=== PATIENT | female | born 1985 | race African-American/Black ===

== ENCOUNTER 2018-09-07 19:53 | Emergency (ER) | payer SELFPAY ==
[~2018-09-07] VITALS: Ht 176.5 cm; Wt 108.9 kg
[~2018-09-07 19:53] MED LIST: BSP10T PO; ONDN4T PO; PREN1TAB14 PO
--- NOTE | 2018-09-07 20:46 | ED EENT ---
History of Present Illness General Chief Complaint: Ear Problems Stated Complaint: ITEM LODGED INTO LT EAR Nursing Triage Note: Patient states she put a wax ear plug in her ear and now she can't get it out. Source: patient Exam Limitations: no limitations History of Present Illness Date Seen by Provider: Sep 07, 2018 Time Seen by Provider: 20:15 Initial Comments Patient is a 33-year-old female with history of chronic bilateral swimmer's ear presents with foreign body impaction left ear. Patient states she used to wax earplug this morning to eliminate fluid sensation in her ears and has been unable to remove the wax foreign body. Reports appropriate accompanied loss of hearing in left ear. No other symptoms or complaints. Several attempts to remove foreign body at home are made but were unsuccessful. Timing/Duration: abrupt Location: ear (L) Prearrival Treatment: other Associated Symptoms: change in hearing Allergies and Home Medications Home Medications Buspirone Hcl 10 Mg Tablet, 3 TAB PO DAILY, (Reported) Ondansetron Hcl 4 Mg Tab, 1 TAB PO Q8H PRN, (Reported) Vits W-Ca,Fe,Fa(<1MG) 1 Each Tablet, 1 EACH PO DAILY, (Reported) Patient Home Medication List Home Medication List Reviewed: Yes Review of Systems Review of Systems Constitutional: no symptoms reported Eyes: No Symptoms Reported Ears: See HPI Nose: no symptoms reported Mouth: no symptoms reported Past Xdcbcqm-Hbrqwu-Kybbtm Hx Past Med/Social Hx: Reviewed Nursing Past Med/Soc Hx Patient Social History Alcohol Use: Denies Use Recreational Drug Use: Yes Drug of Choice: Marijuana, HX - Meth use Smoking Status: Current Everyday Smoker Type Used: Cigarettes 2nd Hand Smoke Exposure: No Recent Foreign Travel: No Contact w/Someone Who Travel: No Recent Infectious Disease Expo: No Recent Hopitalizations: No Physical Abuse: No Sexual Abuse: No Mistreated: No Fear: No Seasonal Allergies Seasonal Allergies: No Past Medical History Section, Gallbladder, Orthopedic Respiratory: No Cardiac: No Neurological: No : No Genitourinary: No Gastrointestinal: No Musculoskeletal: No Endocrine: No HEENT: No Cancer: No Psychosocial: Yes (OCD) ADD/ADHD, Anxiety, Bipolar, Depression Integumentary: No Blood Disorders: No Physical Exam Vital Signs Vital Signs - First Documented 09/07/18 20:08 Temp 97.5 Pulse 46 Resp 16 B/P (MAP) 147/87 (107) Pulse Ox 96 O2 Delivery Room Air Height, Weight, BMI Height: 5'9.50" Weight: 240lbs. oz. 108.624045wh; BMI Method:Stated General Appearance: WD/WN, no apparent distress Eyes: bilateral eye normal inspection, bilateral eye PERRL, bilateral eye EOMI Ears: left ear foreign body (impacted wax earplug in left ear canal); bilateral ear auricle normal Nose: normal inspection Mouth/Throat: normal mouth inspection, pharynx normal Progress/Results/Core Measures Results/Orders Vital Signs/I&O 09/07/18 20:08 Temp 97.5 Pulse 46 Resp 16 B/P (MAP) 147/87 (107) Pulse Ox 96 O2 Delivery Room Air Blood Pressure Mean: 107 Departure Communication (Admissions) Wax foreign body easily removed with ear curet. No remaining foreign body. Patient has bilateral cerumen impaction. Instructed to loosen wax and follow-up with PCP for irrigation and cerumen disimpaction. Impression Primary Impression: Foreign body of ear, left Disposition: 01 HOME, SELF-CARE Condition: Improved Departure-Patient Inst. Decision time for Depature: 20:46 Patient Instructions: Ear Wax Impaction (DC), Foreign Body in Ear, Child (DC) Add. Discharge Instructions: Avoid sticking foreign bodies in your ears. Rinse ears nightly with warm peroxide to loosen wax and follow up with PCP in 1 week to disempact cerumen. All discharge instructions reviewed with patient and/or family. Voiced understanding. VALENCIA COUGHLIN DO Sep 07, 2018 20:46
[2018-09-07 20:58] VITALS: BP 150/81
== END 2018-09-07 20:58 | disposition home or self-care (01) ==
LOC: EDUNIT# 19:53 → ER FS 19:57
DX: T16.2XXA Foreign body in left ear, initial encounter (principal); F42.9 Obsessive-compulsive disorder, unspecified; F98.8 Other specified behavioral and emotional disorders with onset usually occurring in childhood and adolescence; F90.9 Attention-deficit hyperactivity disorder, unspecified type; F41.9 Anxiety disorder, unspecified; F31.9 Bipolar disorder, unspecified; F12.10 Cannabis abuse, uncomplicated; F17.210 Nicotine dependence, cigarettes, uncomplicated; Z98.890 Other specified postprocedural states
CPT/HCPCS: 69200

== ENCOUNTER → 2019-10-20 | Emergency (ER) | payer MEDICAID, OTHER ==
--- OUTSIDE RECORDS SUMMARY | 2019-10-20 16:48 | XMS REPORT ---
Author Author Luma Lopez [facility] Address [address] [place] [address] Care Team Providers Care Cigarette Machine Filler Name Role Phone BARRY Lopez Unavailable PROBLEMS Type Condition ICD9-CM Code [id number] Code Onset Dates Condition S tatus SNOMED Code Problem Amenorrhea N91.2 Active 81453351 Problem Migraine without aura and without status migrain osus, not intractable G43.009 Active 525552066 Problem Depressive disorder, not elsewhere classified 311 Active 05205139 Problem Generalized anxiety disorder 300.02 A ctive 10024735 ALLERGIES No Information ENCOUNTERS Encounter Location Date Diagnosis [address] [id number] [address] 10 Aug, 2019 Encounter for supervision of other normal in first trimester Z34.[address] [id number] [address] 05 Aug, 2019 Cough R05 ; Encounter for ramos pervision of other normal , second trimester Z34.82 ; Acute bronchiolitis, unspecified J21.9 and Acute bronchitis, unspecified J20.[address] [id number] [address] Jul, [address] [id number] [address] Jul, [address] [id number] [address] 06 Jul, 2019 Encounter for supervision of other normal in first trimester Z34.[address] [id number] [address] 09 Jun, 2019 Encounter for supervision of other normal , second trimester Z34.82 ; Hyperemesis R11.10 and Migraine without aura and without status migrainosus, not intractable G43.009 [facility] [place] [address] [id number] [place] [address] May, [facility] [place] [address] [id number] [place] [address] May, Vomiting, intractability of vomiting not specified, presence of nausea not specified, unspecified vomiting type R11.10 [facility] [id number] [place] [address] May, [address] [id number] [address] May, Encounter for supervision of other normal , first trimester Z34.81 and First trimester bleeding O20.9 [facility] [address] [id number] [address] Apr, Encounter for supervision of other normal in first trimester Z34.81 [facility] [address] [id number] [address] Apr, [address] [id number] [address] Apr, Amenorrhea N91.[address] [id number] [address] Apr, Amenorrhea N91.2 [place] [address] [facility] [id number] [address] [place] [address] Jan, [facility] [address] [facility] [id number] [address] [place] [address] Jan, [facility] [address] [facility] [id number] [address] [place] [address] Nov, [facility] [address] [facility] [id number] [address] [place] [address] Nov, IMMUNIZATIONS No Known Immunizations SOCIAL HISTORY Never Assessed REASON FOR VISIT PLAN OF CARE VITAL SIGNS MEDICATIONS Unknown Medications RESULTS No Results PROCEDURES No Known procedures INSTRUCTIONS MEDICATIONS ADMINISTERED No Known Medications MEDICAL (GENERAL) HISTORY Type Description Date Surgical History Surgical History jackie
--- OUTSIDE RECORDS SUMMARY | 2019-10-20 16:48 | XMS REPORT ---
Author Author Luma FOSTER Organization [facility] [place] Address Unknown Care Team Providers Care Product Evangelist Name Role Phone CRISTIANLILLY GONZALEZLEY Unavailable PROBLEMS Type Condition ICD9-CM Code BPA01-RB Code Onset Dates Condition S tatus SNOMED Code Problem Amenorrhea N91.2 Active 01753059 Problem Migraine without aura and without status migrain osus, not intractable G43.009 Active 508589184 Problem Depressive disorder, not elsewhere classified 311 Active 30005726 Problem Generalized anxiety disorder 300.02 A ctive [id number] ALLERGIES No Information ENCOUNTERS Encounter Location Date Diagnosis [address] [address] Jul, [address] [address] Jun, Encounter for supervision of other normal , second trimester Z34.82 ; Hyperemesis R11.10 and Migraine without aura and without status migrainosus, not intractable G43.[address] [address] May, [address] [address] May, Vomiting, intractability of vomiting not specified, presence of nausea not specified, unspecified vomiting type R11.[address] [address] May, [address] [address] May, Encounter for supervision of other normal , first trimester Z34.81 and First trimester bleeding O20.9 [place] [address] [place] [address] Apr, Encounter for supervision of other normal in first trimester Z34.81 [address] [place] [address] Apr, [address] [place] [address] Apr, Amenorrhea N91.2 [place] [address] [place] [address] Apr, Amenorrhea N91.2 [facility] [place] [address] [id number] [place] [address] Jan, [place] [address] [place] [id number] [place] [address] Jan, [facility] [place] [address] [id number] [place] [address] Nov, [place] [address] [id number] [place] [address] Nov, IMMUNIZATIONS No Known Immunizations SOCIAL HISTORY Never Assessed REASON FOR VISIT PLAN OF CARE VITAL SIGNS MEDICATIONS Unknown Medications RESULTS No Results PROCEDURES Procedure Date Ordered Result Body Site PSYCH DIAGNOSTIC EVALUATION December 09, 2013 INSTRUCTIONS MEDICATIONS ADMINISTERED No Known Medications MEDICAL (GENERAL) HISTORY Type Description Date Surgical History Surgical History jackie
--- OUTSIDE RECORDS SUMMARY | 2019-10-20 16:48 | XMS REPORT | Continuity of Care Document ---
Author Organization Unknown Address Unknown Phone Unavailable Allergies There is no data. Medications There is no data. Problems Date Dx Coded Attending Type Code Diagnosis Diagnosed By 09/12/2018 VALENCIA COUGHLIN DO, Ot F12.10 CANNABIS ABUSE, UNCOMPLICATED 09/12/2018 VALENCIA COUGHLIN DO, Ot F17.210 NICOTINE DEPENDENCE, CIGARETTES, UNCOMPL 09/12/2018 VALENCIA COUGHLIN DO, Ot F31.9 BIPOLAR DISORDER, UNSPECIFIED 09/12/2018 VALENCIA COUGHLIN DO, Ot F41.9 ANXIETY DISORDER, UNSPECIFIED 09/12/2018 VALENCIA COUGHLIN DO, Ot F42.9 OBSESSIVE-COMPULSIVE DISORDER, UNSPECIFI 09/12/2018 VALENCIA COUGHLIN DO, Ot F90.9 ATTENTION-DEFICIT HYPERACTIVITY DISORDER 09/12/2018 VALENCIA COUGHLIN DO, Ot F98.8 OTH BEHAV/EMOTN DISORD W ONSET USLY OCCU 09/12/2018 VALENCIA COUGHLIN DO, Ot T16.2XXA FOREIGN BODY IN LEFT EAR, INITIAL ENCOUN 09/12/2018 VALENCIA COUGHLIN DO, Ot Z98.890 OTHER SPECIFIED POSTPROCEDURAL STATES Procedures There is no data. Results Test Result Range HCG, QUANTITATIVE - 04/15/19 14:07 HCG, TOTAL, QN 117 mIU/mL NRG BLOOD TPYE/RH FACTOR - 04/23/19 15:55 ABO GROUP TNP NRG ANTIBODY SCREEN - 04/23/19 15:55 ANTIBODY SCREEN, RBC W/REFL ID, TITER AND AG TNP NRG SUREPATH PAP RFX HPV mRNA E6/E7 - 16:41 CLINICAL INFORMATION: NRG LMP: NRG PREV. PAP: NRG PREV. BX: NRG SOURCE: Cervix NRG STATEMENT OF ADEQUACY: NRG INTERPRETATION/RESULT: NRG MECHANIC FIELD SERVICE: NRG COMMENT NRG Encounters ACCT No. Visit Date/Time Discharge Status Pt. Type Provider Facility Loc./Unit Complaint [id number] 08/15/2019 13:15:00 08/15/2019 23:59: 59 CLS Outpatient DYLLAN AGGARWAL [facility] [id number] 04/23/2019 15:00:00 Document Registration [id number] 04/15/2019 14:00:00 Document Registration [id number] 09/07/2018 19:57:00 019 20:58:00 DIS Outpatient VALENCIA COUGHLIN DO [facility] ER FS ITEM LODGED INTO LT EAR
--- NOTE | 2019-10-20 17:01 | NUR ---
Patient left without being seen when it was explained to her that we were not permitting any visitors.
== END | disposition left against medical advice (07) ==
LOC: EDUNIT# 16:41 → ER FS 16:44
DX: R10.9 Unspecified abdominal pain (principal)

== ENCOUNTER → 2019-12-10 | Outpatient (CLI) | payer MEDICAID | LOC: LAB FS 11:13 | PROVIDERS: ATTEND Obstetrics & Gynecology | DX: O09.90 Supervision of high risk pregnancy, unspecified, unspecified trimester (principal); Z3A.00 Weeks of gestation of pregnancy not specified | CPT/HCPCS: 36415; 82947; 83036 ==

== ENCOUNTER 2020-04-29 19:59 | Emergency (ER) | payer MEDICAID ==
[~2020-04-29] VITALS: Ht 175.3 cm; Wt 108.9 kg
[2020-04-29 20:00] VITALS: BP 114/79
[2020-04-29] MEDS ORDERED: LIDOCAINE PF 2% 5 ML (XYLOCAINE) VIAL INH ONE (20:15)
[2020-04-29] MEDS ORDERED: IBUPROFEN 800 MG (MOTRIN) TAB PO ONE (20:15)
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
[2020-04-29] MEDS ORDERED: BACI28.35 TP (20:19)
[2020-04-29] MEDS ORDERED: IBUP-1780 PO (20:19)
== END 2020-04-29 20:35 | disposition home or self-care (01) ==
LOC: EDUNIT# 19:59 → ER FS 20:00
DX: S01.01XA Laceration without foreign body of scalp, initial encounter (principal); F41.9 Anxiety disorder, unspecified; X58.XXXA Exposure to other specified factors, initial encounter
CPT/HCPCS: 99282

== ENCOUNTER 2022-09-02 21:45 | Emergency (ER) | payer MEDICAID, OTHER ==
[~2022-09-02] VITALS: Ht 175.2 cm; Wt 120.7 kg
[~2022-09-02 21:45] MED LIST changes: +BACI28.35 TP; +IBUP-1780 PO
[2022-09-02] MEDS ORDERED: LACTATED RINGERS 1,000 ML IV STA (21:55)
[2022-09-02] MEDS ORDERED: ONDANSETRON 4 MG/2 ML (SDV) Z0FRAN IVP ONE (22:00)
[2022-09-02] MEDS ORDERED: ACETAMINOPHEN 500 MG TAB (TYLENOL) PO ONE (22:00)
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
[2022-09-02 22:16] LABS: BASOPHILS # (AUTO) 0.1 10^3/uL (0.0-0.1); BASOPHILS % (AUTO) 0 % (0-10); EOSINOPHILS # (AUTO) 0.3 10^3/uL (0.0-0.3); EOSINOPHILS % (AUTO) 2 % (0-10); HEMATOCRIT 34 % (35-52); HEMOGLOBIN 10.8 g/dL (11.5-16.0); LYMPHOCYTES # (AUTO) 2.6 10^3/uL (1.0-4.0); LYMPHOCYTES % (AUTO) 19 % (12-44); MEAN CORPUSCULAR HEMOGLOBIN 23 pg (25-34); MEAN CORPUSCULAR HGB CONC 31 g/dL (32-36); MEAN CORPUSCULAR VOLUME 73 fL (80-99); MEAN PLATELET VOLUME 9.2 fL (9.0-12.2); MONOCYTES # (AUTO) 1.2 10^3/uL (0.0-1.0); MONOCYTES % (AUTO) 9 % (0-12); NEUTROPHILS # (AUTO) 9.3 10^3/uL (1.8-7.8); NEUTROPHILS % (AUTO) 69 % (42-75); PLATELET COUNT 319 10^3/uL (130-400); WHITE BLOOD COUNT 13.6 10^3/uL (4.3-11.0)
[2022-09-02 22:18] LABS: BILIRUBIN,URINE NEGATIVE (NEGATIVE); COLOR,URINE YELLOW; GLUCOSE, URINE (UA) 2+ (NEGATIVE); KETONES,URINE NEGATIVE (NEGATIVE); LEUKOCYTE ESTERASE ,URINE NEGATIVE (NEGATIVE); NITRITE,URINE NEGATIVE (NEGATIVE); PROTEIN,URINE NEGATIVE (NEGATIVE)
[2022-09-02 22:19] LABS: CLARITY,URINE TURBID
[2022-09-02 22:22] LABS: BACTERIA,URINE LARGE /HPF; SQUAMOUS EPITHELIAL CELL,UR >50 /HPF; WBC,URINE >100 /HPF
[2022-09-02] MEDS ORDERED: CEFDINIR 300 MG (OMNICEF) CAP PO ONE (22:30)
[2022-09-02] MEDS ORDERED: diphenhydrAMINE 50 MG/ML INJ (BENADRYL) ONE (22:37)
[2022-09-02 22:39] LABS: POTASSIUM 4.1 MMOL/L (3.6-5.0)
[2022-09-02 22:40] LABS: ALBUMIN 3.3 GM/DL (3.2-4.5); BILIRUBIN,TOTAL 0.2 MG/DL (0.1-1.0); CALCIUM 9.4 MG/DL (8.5-10.1); CREATININE SERUM 0.57 MG/DL (0.60-1.30); TOTAL PROTEIN 6.8 GM/DL (6.4-8.2)
[2022-09-02] MEDS ORDERED: diphenhydrAMINE 50 MG/ML INJ (BENADRYL) IV STA (22:40)
[2022-09-02] MEDS ORDERED: FERR-84 PO (23:05)
[2022-09-02 23:25] VITALS: BP 120/66
== END 2022-09-02 23:25 | disposition home or self-care (01) ==
LOC: EDUNIT# 21:45 → ER FS 21:49
DX: O23.12 Infections of bladder in pregnancy, second trimester (principal); N30.90 Cystitis, unspecified without hematuria; Z28.310 Unvaccinated for COVID-19; Z3A.24 24 weeks gestation of pregnancy
CPT/HCPCS: 36415; 80053; 81000; 83690; 85025; 87088

== ENCOUNTER 2022-09-05 20:34 | Emergency (ER) | payer OTHER ==
[~2022-09-05 20:34] MED LIST changes: +FERR-84 PO
[2022-09-05] MEDS ORDERED: NS IV 1000 ML 1,000 ML IV STA (20:44)
[2022-09-05] MEDS ORDERED: ACETAMINOPHEN 500 MG TAB (TYLENOL) PO ONE (20:45)
--- NOTE | 2022-09-05 20:47 | ED Abdominal Pain ---
General Stated Complaint: LOWER ABD PAIN, 22WKS PREG, DISCHARGE,NAUSEA Source of Information: Patient Exam Limitations: No Limitations History of Present Illness Date Seen by Provider: Sep 05, 2022 Time Seen by Provider: 20:38 Initial Comments 37yoF that is at 24 weeks 3 days estimated gestational age by LMP of March 18 coming in due to lower abdominal pain. Seen in the ER a couple of days ago and had a lot of WBCs in her urine. Pain had improved so was discharged back to halfway with antibiotics. Pain has been worse since this morning. Last had tylenol at 8am. [place] has had some nonbloody nonbilious vomiting. Denies any diarrhea or fever. Also denies any vaginal bleeding. Allergies and Home Medications Allergies Coded Allergies: No Known Drug Allergies (Unverified , 04/29/20) Patient Home Medication List Home Medication List Reviewed: Yes Bacitracin/Polymyxin B Sulfate (Polysporin Ointment) 28.3 Gm Oint...g., 28.3 GM TP BID Prescribed by: DAYNA LEDEZMA on 04/29/202018 Ferrous Sulfate (Iron) 325 Mg (65 Mg Iron) Tablet, 325 MG PO DAILY, (Reported) Entered as Reported by: LYLE CAMPOS on 09/02/222304 Ibuprofen (Ibuprofen) 800 Mg Tablet, 800 MG PO Q8H PRN for PAIN Prescribed by: DAYNA LEDEZMA on 04/29/202018 Ondansetron Hcl (Zofran) 4 Mg Tab, 1 TAB PO Q8H PRN, (Reported) Entered as Reported by: LISBETH CUEVAS on 08/12/121334 Vits W-Ca,Fe,Fa(<1MG) ( Vitamins) 1 Each Tablet, 1 EACH PO DAILY, (Reported) Entered as Reported by: LISBETH CUEVAS on 08/12/121334 Discontinued Medications Buspirone Hcl (Buspar) 10 Mg Tablet, 3 TAB PO DAILY, (Reported) Discontinued Reason: Referral/FU Appt-Addtl Entered as Reported by: LISBETH CUEVAS on 08/12/121334 Review of Systems Review of Systems Constitutional: No fever EENTM: No Symptoms Reported Respiratory: No Symptoms Reported Cardiovascular: No Symptoms Reported Gastrointestinal: See HPI Genitourinary: No Symptoms Reported Musculoskeletal: no symptoms reported Skin: no symptoms reported Psychiatric/Neurological: No Symptoms Reported Endocrine: No Symptoms Reported Past Zraxkef-Sdfdel-Csafkk Hx Immunizations Up To Date First/Initial COVID19 Vaccinat: Unvaccinated Seasonal Allergies Seasonal Allergies: No Past Medical History Surgery/Hospitalization HX: /AB1, Gestational Diabetes Hx Surgeries: Yes Section, Gallbladder, Orthopedic Respiratory: No Cardiac: No Neurological: No Genitourinary: No Gastrointestinal: No Musculoskeletal: No Endocrine: No HEENT: No Cancer: No Psychosocial: Yes (OCD) ADD/ADHD, Anxiety, Bipolar, Depression Integumentary: No Blood Disorders: No Physical Exam Vital Signs Vital Signs - First Documented 09/05/22 20:38 Temp 36.2 Pulse 83 Resp 18 B/P (MAP) 126/77 (93) Pulse Ox 100 O2 Delivery Room Air Capillary Refill : Height/Weight/BMI Height: 5'9.50" Weight: 240lbs. oz. 108.562764ut; 39.00 BMI Method:Stated General Appearance: WD/WN, no apparent distress HEENT: PERRL/EOMI, normal ENT inspection, pharynx normal Neck: non-tender, full range of motion, supple, normal inspection Respiratory: chest non-tender, lungs clear, normal breath sounds, no respiratory distress, no accessory muscle use Cardiovascular: regular rate, rhythm, no edema, no murmur Gastrointestinal: normal bowel sounds, soft; No distended, No guarding, No rebound; tenderness Extremities: normal range of motion, non-tender, normal inspection, no pedal edema, no calf tenderness, normal capillary refill Back: normal inspection, no CVA tenderness Neurologic/Psychiatric: no motor/sensory deficits, alert, normal mood/affect Skin: normal color, warm/dry Progress/Results/Core Measures Results/Orders Lab Results Laboratory Tests Test 09/05/22 20:40 09/05/22 20:55 Range/Units Urine Color YELLOW Urine Clarity SL CLOUDY Urine pH 5.5 5-9 Urine Specific [place] >=1.030 1.016-1.022 Urine Protein NEGATIVE NEGATIVE Urine Glucose (UA) 1+ H NEGATIVE Urine Ketones TRACE H NEGATIVE Urine Nitrite NEGATIVE NEGATIVE Urine Bilirubin NEGATIVE NEGATIVE Urine Urobilinogen 0.2 < = 1.0 MG/DL Urine Leukocyte Esterase NEGATIVE NEGATIVE Urine RBC (Auto) NEGATIVE NEGATIVE Urine RBC NONE /HPF Urine WBC 2-5 /HPF Urine Squamous Epithelial Cells 2-5 /HPF Urine Crystals NONE /LPF Urine Bacteria FEW H /HPF Urine Casts NONE /LPF Urine Mucus NEGATIVE /LPF Urine Culture Indicated YES White Blood Count 15.4 H 4.3-11.0 10^3/uL Red Blood Count 4.96 3.80-5.11 10^6/uL Hemoglobin 11.6 11.5-16.0 g/dL Hematocrit 37 35-52 % Mean Corpuscular Volume 74 L 80-99 fL Mean Corpuscular Hemoglobin 23 L 25-34 pg Mean Corpuscular Hemoglobin Concent 32 32-36 g/dL Red Cell Distribution Width 19.0 H 10.0-14.5 % Platelet Count 342 130-400 10^3/uL Mean Platelet Volume 9.9 9.0-12.2 fL Immature Granulocyte % (Auto) 1 % Neutrophils (%) (Auto) 69 42-75 % Lymphocytes (%) (Auto) 22 12-44 % Monocytes (%) (Auto) 6 0-12 % Eosinophils (%) (Auto) 2 0-10 % Basophils (%) (Auto) 0 0-10 % Neutrophils # (Auto) 10.6 H 1.8-7.8 10^3/uL Lymphocytes # (Auto) 3.3 1.0-4.0 10^3/uL Monocytes # (Auto) 1.0 0.0-1.0 10^3/uL Eosinophils # (Auto) 0.3 0.0-0.3 10^3/uL Basophils # (Auto) 0.1 0.0-0.1 10^3/uL Immature Granulocyte # (Auto) 0.1 0.0-0.1 10^3/uL Neutrophils % (Manual) 63 % Lymphocytes % (Manual) 26 % Monocytes % (Manual) 5 % Eosinophils % (Manual) 3 % Basophils % (Manual) 1 % Metamyelocytes % 1 % Band Neutrophils 1 % Poikilocytosis SLIGHT Anisocytosis SLIGHT Sodium Level 138 135-145 MMOL/L Potassium Level 4.7 3.6-5.0 MMOL/L Chloride Level 105 98-107 MMOL/L Carbon Dioxide Level 20 L 21-32 MMOL/L Anion Gap 13 5-14 MMOL/L Blood Urea Nitrogen 10 7-18 MG/DL Creatinine 0.71 0.60-1.30 MG/DL Estimat Glomerular Filtration Rate 112 BUN/Creatinine Ratio 14 Glucose Level 98 70-105 MG/DL Calcium Level 9.6 8.5-10.1 MG/DL Corrected Calcium 9.8 8.5-10.1 MG/DL Magnesium Level 2.2 1.6-2.4 MG/DL Total Bilirubin 0.2 0.1-1.0 MG/DL Aspartate Amino Transf (AST/SGOT) 19 5-34 U/L Alanine Aminotransferase (ALT/SGPT) 11 0-55 U/L Alkaline Phosphatase 64 40-136 U/L C-Reactive Protein 0.87 H <0.50 MG/DL Total Protein 7.2 6.4-8.2 GM/DL Albumin 3.8 3.2-4.5 GM/DL Lipase 79 H 8-78 U/L My Orders Orders - CLIFFORD ROLDAN MD Cbc With Automated Diff (09/05/22 20:41) Comprehensive Metabolic Panel (09/05/22 20:41) Lipase (09/05/22 20:41) Magnesium (09/05/22 20:41) Ua Culture If Indicated (09/05/22 20:41) Neis Ger Dna Urine Test (09/05/22 20:41) Chlamydia Trachomatis Urine (09/05/22 20:41) Ns Iv 1000 Ml (Sodium Chloride 0.9%) (09/05/22 20:44) Acetaminophen Tablet (Tylenol Tablet) (09/05/22 20:45) Crp Fs (09/05/22 20:47) Ondansetron Injection (Zofran Injectio (09/05/22 21:00) Diphenhydramine Injection (Benadryl Inje (09/05/22 21:00) Famotidine Tablet (Pepcid Tablet) (09/05/22 21:00) Urine Culture (09/05/22 20:40) Manual Differential (09/05/22 20:55) Ed Iv/Invasive Line Start (09/05/22 21:28) Medications Given in ED Current Medications Medications Dose Ordered Sig/Ayla Route Start Time Stop Time Status Last Admin Dose Admin Acetaminophen 1,000 mg ONCE ONCE PO 09/05/22 20:45 09/05/22 20:46 DC 09/05/22 21:03 1,000 MG Diphenhydramine HCl 25 mg ONCE ONCE IVP 09/05/22 21:00 09/05/22 21:01 DC 09/05/22 21:03 25 MG Famotidine 20 mg ONCE ONCE PO 09/05/22 21:00 09/05/22 21:01 DC 09/05/22 21:03 20 MG Ondansetron HCl 4 mg ONCE ONCE IVP 09/05/22 21:00 09/05/22 21:01 DC 09/05/22 21:03 4 MG Vital Signs/I&O 09/05/22 20:38 Temp 36.2 Pulse 83 Resp 18 B/P (MAP) 126/77 (93) Pulse Ox 100 O2 Delivery Room Air Progress Progress Note : Progress Note 37-year-old female with above history coming in due to lower abdominal discomfort. ABCs were intact and vitals were stable on presentation. Physical exam with mild suprapubic discomfort that is very mild, specifically no right lower quadrant tenderness or right upper quadrant tenderness. No signs of peritonitis on exam. I did a [id number] ultrasound showing movement and a heart rate right at 160. An IV was placed by me with ultrasound guidance and basic labs were obtained. Urinalysis with some bacteria, patient still on antibiotics from previous ER visit. I reviewed the urine culture from 2 days ago, and it grew out mixed vaginal dennis, likely contaminated. She was given Zofran, IV fluids, Benadryl, and p.o. Pepcid here. She was also given Tylenol. Labs here with mild leukocytosis, similar to previous few days, normal creatinine, normal electrolytes, CRP just above normal, essentially unremarkable. Very low suspicion for cholecystitis versus appendicitis. Urinalysis appears better today, low suspicion for anything such as pyelonephritis. We will discharge her and I contacted the OB floor in the hospital in [place]. She will present to the triage for further monitoring and assessment of labor. I called an gave report to SADIE Burden. Departure Impression Primary Impression: Qualified Codes: Z3A.24 - 24 weeks gestation of Additional Impression: Lower abdominal pain Disposition: HOME, SELF-CARE Condition: Stable Departure-Patient Inst. Decision time for Depature: 21:40 Referrals: ЕЛЕНА MEDINA MD (PCP/Family) Primary Care Physician Add. Discharge Instructions: Drive to the [place] [facility] emergency department. Tell the desk clerk that you are supposed to go up to the OB floor for monitoring and they should let you go through. Continue to take antibiotics were prescribed. Otherwise follow-up with your OB as an outpatient if everything is okay in [place]. CLIFFORD ROLDAN MD Sep 05, 2022 20:47
[2022-09-05 20:50] LABS: BILIRUBIN,URINE NEGATIVE (NEGATIVE); CLARITY,URINE SL CLOUDY; COLOR,URINE YELLOW; GLUCOSE, URINE (UA) 1+ (NEGATIVE); KETONES,URINE TRACE (NEGATIVE); LEUKOCYTE ESTERASE ,URINE NEGATIVE (NEGATIVE); NITRITE,URINE NEGATIVE (NEGATIVE); PH,URINE 5.5 (5-9); PROTEIN,URINE NEGATIVE (NEGATIVE)
[2022-09-05 20:55] LABS: BACTERIA,URINE FEW /HPF
[2022-09-05] MEDS ORDERED: diphenhydrAMINE 50 MG/ML INJ (BENADRYL) IVP ONE (21:00)
[2022-09-05] MEDS ORDERED: ONDANSETRON 4 MG/2 ML (SDV) Z0FRAN IVP ONE (21:00)
[2022-09-05] MEDS ORDERED: FAMOTIDINE 20 MG (PEPCID) TABLET PO ONE (21:00)
[2022-09-05 21:02] LABS: BASOPHILS # (AUTO) 0.1 10^3/uL (0.0-0.1); BASOPHILS % (AUTO) 0 % (0-10); EOSINOPHILS # (AUTO) 0.3 10^3/uL (0.0-0.3); EOSINOPHILS % (AUTO) 2 % (0-10); HEMATOCRIT 37 % (35-52); HEMOGLOBIN 11.6 g/dL (11.5-16.0); LYMPHOCYTES # (AUTO) 3.3 10^3/uL (1.0-4.0); LYMPHOCYTES % (AUTO) 22 % (12-44); MEAN CORPUSCULAR HEMOGLOBIN 23 pg (25-34); MEAN CORPUSCULAR HGB CONC 32 g/dL (32-36); MEAN CORPUSCULAR VOLUME 74 fL (80-99); MEAN PLATELET VOLUME 9.9 fL (9.0-12.2); MONOCYTES % (AUTO) 6 % (0-12); NEUTROPHILS # (AUTO) 10.6 10^3/uL (1.8-7.8); NEUTROPHILS % (AUTO) 69 % (42-75); PLATELET COUNT 342 10^3/uL (130-400); WHITE BLOOD COUNT 15.4 10^3/uL (4.3-11.0)
[2022-09-05 21:28] LABS: ALBUMIN 3.8 GM/DL (3.2-4.5); BILIRUBIN,TOTAL 0.2 MG/DL (0.1-1.0); CALCIUM 9.6 MG/DL (8.5-10.1); CREATININE SERUM 0.71 MG/DL (0.60-1.30); MAGNESIUM 2.2 MG/DL (1.6-2.4); POTASSIUM 4.7 MMOL/L (3.6-5.0); TOTAL PROTEIN 7.2 GM/DL (6.4-8.2)
[2022-09-05 21:29] LABS: BAND NEUTROPHILS 1 %; BASOPHILS % (MANUAL) 1 %; EOSINOPHILS % (MANUAL) 3 %; LYMPHOCYTES % (MANUAL) 26 %; METAMYELOCYTES % 1 %; MONOCYTES % (MANUAL) 5 %; NEUTROPHILS % (MANUAL) 63 %; POIKILOCYTOSIS SLIGHT
[2022-09-05 21:30] LABS: ANISOCYTOSIS SLIGHT
[2022-09-05 21:40] VITALS: BP 126/77
== END 2022-09-05 21:43 | disposition home or self-care (01) ==
LOC: EDUNIT# 20:34 → ER FS 20:37
DX: O26.892 Other specified pregnancy related conditions, second trimester (principal); R10.30 Lower abdominal pain, unspecified; Z3A.24 24 weeks gestation of pregnancy; Z28.310 Unvaccinated for COVID-19
CPT/HCPCS: 36415; 80053; 81000; 83690; 83735; 85007; 85027; 86141; 87088; 87491; 87591

== ENCOUNTER 2022-09-05 22:35 | Outpatient (CLI) | payer OTHER ==
[~2022-09-05] VITALS: Ht 176.9 cm; Wt 121.2 kg
[2022-09-05 22:40] VITALS: BP 131/76
[2022-09-05 23:00] VITALS: BP 131/76
--- NOTE | 2022-09-06 08:31 | Physician Query-Final Dx ---
ELISA,09/06/22 0831: Clinic Account Progress/Dx Physician Query: Please give diagnosis Please include # weeks gestation Date of Service Sep 05, 2022 at 22:35 LETHA RENEE DO 09/07/22 1405: Clinic Account Progress/Dx DIAGNOSIS: Diagnosis pelvic pain Gestational Age not documented/unknown ELISA,JunSep 06, 2022 08:31 LETHA RENEE DO Sep 07, 2022 14:05
== END 2022-09-06 00:40 ==
LOC: WSo 22:35 → LDRP 22:36 → WSo 09-06 00:40
PROVIDERS: ATTEND Family Medicine
DX: O26.899 Other specified pregnancy related conditions, unspecified trimester (principal); R10.2 Pelvic and perineal pain; Z3A.00 Weeks of gestation of pregnancy not specified
CPT/HCPCS: 99213

== ENCOUNTER 2022-09-11 17:29 | Emergency (ER) | payer OTHER ==
[~2022-09-11] VITALS: Ht 175.3 cm; Wt 122.0 kg
--- NOTE | 2022-09-11 17:47 | ED GU-Female ---
General Chief Complaint: OB > 20 WEEKS Stated Complaint: 6 MONTHS /LEAKING FLUID History of Present Illness Date Seen by Provider: Sep 11, 2022 Time Seen by Provider: 17:40 Initial Comments 37 yr F who is a [id number] is here with c/o vaginal discharge for the past 2 weeks. Patient feels pelvic discomfort. Patient has seen her AUTO COLLISION REPAIR INSTRUCTOR but has not had an ultrasound yet and was scheduled for it but she was arrested a couple days before her appointment to get an ultrasound. Patient has been in skilled nursing for the past 3 weeks. While in skilled nursing she did not get vitamins for 2 weeks. She just restarted her vitamins this past week in skilled nursing. Patient does not seem in any type of distress in the ER. Denies dysuria, fever and chills, abdominal pain, contractions, nausea and vomiting, diarrhea, chest pain. Allergies and Home Medications Allergies Coded Allergies: No Known Drug Allergies (Unverified , 04/29/20) Patient Home Medication List Home Medication List Reviewed: Yes Vits W-Ca,Fe,Fa(<1MG) ( Vitamins) 1 Each Tablet, 1 EACH PO DAILY, (Reported) Entered as Reported by: LISBETH CUEVAS on 08/12/12 1335 Discontinued Medications Bacitracin/Polymyxin B Sulfate (Polysporin Ointment) 28.3 Gm Oint...g., 28.3 GM TP BID Discontinued Reason: No Longer Taking Prescribed by: DAYNA LEDEZMA on 04/29/202018 Ferrous Sulfate (Iron) 325 Mg (65 Mg Iron) Tablet, 325 MG PO DAILY, (Reported) Discontinued Reason: No Longer Taking Entered as Reported by: LYLE CAMPOS on 09/02/22 2305 Ibuprofen (Ibuprofen) 800 Mg Tablet, 800 MG PO Q8H PRN for PAIN Discontinued Reason: No Longer Taking Prescribed by: DAYNA SPENCERSTKENTON on 04/29/202018 Ondansetron Hcl (Zofran) 4 Mg Tab, 1 TAB PO Q8H PRN, (Reported) Discontinued Reason: No Longer Taking Entered as Reported by: LISBETH CUEVAS on 08/12/12 1335 Review of Systems Review of Systems Constitutional: no symptoms reported EENTM: no symptoms reported Respiratory: no symptoms reported Cardiovascular: no symptoms reported Gastrointestinal: no symptoms reported Genitourinary: see HPI, discharge Musculoskeletal: no symptoms reported Skin: no symptoms reported Psychiatric/Neurological: No Symptoms Reported Endocrine: No Symptoms Reported Hematologic/Lymphatic: No Symptoms Reported Past Feetxou-Gunktw-Cegpmi Hx Patient Social History Tobacco Use?: No Substance use?: No Alcohol Use?: No Pt feels they are or have been: No Immunizations Up To Date First/Initial COVID19 Vaccinat: Unvaccinated Second COVID19 Vaccination Chilo: Unvaccinated Third COVID19 Vaccination Date: Unvaccinated Seasonal Allergies Seasonal Allergies: No Past Medical History Surgery/Hospitalization HX: /AB1, Gestational Diabetes Hx Surgeries: Yes Section, Gallbladder, Orthopedic Respiratory: No Cardiac: No Neurological: No Genitourinary: No Gastrointestinal: No Musculoskeletal: No Endocrine: No HEENT: No Cancer: No Psychosocial: Yes (OCD) ADD/ADHD, Anxiety, Bipolar, Depression Integumentary: No Blood Disorders: No Physical Exam Vital Signs Vital Signs - First Documented 09/11/22 17:43 Temp 36.7 Pulse 79 Resp 18 B/P (MAP) 137/68 (91) Pulse Ox 99 O2 Delivery Room Air Capillary Refill : Height, Weight, BMI Height: 5'9.50" Weight: 240lbs. oz. 108.013831bx; 38.72 BMI Method:Stated General Appearance: WD/WN, no apparent distress HEENT: PERRL/EOMI Neck: full range of motion Cardiovascular: regular rate, rhythm Respiratory: lungs clear Gastrointestinal: normal bowel sounds, non tender, soft Genital/Rectal: normal genital exam, normal vaginal exam Pelvic: normal external exam, normal adnexa, no cerv. motion tender, no masses, discharge (Cervix is closed, thick white discharge seen and swabbed. No bleeding. Nontender.) Back: normal inspection, no CVA tenderness Extremities: normal range of motion Neurologic/Psychiatric: alert, oriented x 3 Skin: normal color Progress/Results/Core Measures Suspected Sepsis SIRS Temperature: Pulse: Respiratory Rate: Blood Pressure / Mean: Results/Orders Lab Results Laboratory Tests Test 09/11/22 18:12 Range/Units Urine Color YELLOW Urine Clarity CLEAR Urine pH 6.0 5-9 Urine Specific [place] >=1.030 1.016-1.022 Urine Protein NEGATIVE NEGATIVE Urine Glucose (UA) TRACE H NEGATIVE Urine Ketones NEGATIVE NEGATIVE Urine Nitrite NEGATIVE NEGATIVE Urine Bilirubin NEGATIVE NEGATIVE Urine Urobilinogen 0.2 < = 1.0 MG/DL Urine Leukocyte Esterase NEGATIVE NEGATIVE Urine RBC (Auto) NEGATIVE NEGATIVE Urine RBC 2-5 H /HPF Urine WBC 0-2 /HPF Urine Squamous Epithelial Cells 10-25 H /HPF Urine Crystals NONE /LPF Urine Bacteria MODERATE H /HPF Urine Casts NONE /LPF Urine Mucus NEGATIVE /LPF Urine Culture Indicated YES My Orders Orders - KATHERINE LOPEZ MD Ua Culture If Indicated (09/11/22 17:48) Urine Culture (09/11/22 18:12) Vital Signs/I&O 09/11/22 17:43 Temp 36.7 Pulse 79 Resp 18 B/P (MAP) 137/68 (91) Pulse Ox 99 O2 Delivery Room Air Capillary Refill : Progress Note : Progress Note 1. VAGINAL DISCHARGE: - UA is negative for infection. Patient just recently finished a course of antibiotics for UTI - GC / Chlamydia swab/ wet mount sent to lab -Patient wants to wait for treatment until labs return with the results since pt states she gets discharge commonly during her pregnancies -Advised to follow-up with AUTO COLLISION REPAIR INSTRUCTOR to obtain ultrasound and for follow-up -Advised to continue vitamins daily -The patient was seen in the ED, and treated appropriately to presentation at a specific point in time. Patient and skilled nursing is informed that there is a possibility that disease and illness can evolve and change in acuity rapidly or slowly after patient is discharged from the ER. Precautionary advice given to the patient and skilled nursing for immediate return to ER if symptoms worsen or do not resolve, and to seek emergency care sooner rather than later. Pt and skilled nursing also advised on the importance of OB-UNIT RECEPTIONIST follow up and compliance with management and follow up plan with PCP and/or specialist, as this is part of the management plan. Pt and skilled nursing verbally expressed understanding. Departure Impression Primary Impression: Vaginal discharge during Disposition: [address]/LAW ENFORCE Condition: Stable Departure-Patient Inst. Referrals: MEAGAN VASQUEZ DO (PCP/Family) Primary Care Physician Patient Instructions: Vaginal Discharge, Symptoms Add. Discharge Instructions: - GC / Chlamydia swab/ wet mount sent to lab, will need to follow up labs and obtain treatment if labs return positive -Advised to follow-up with AUTO COLLISION REPAIR INSTRUCTOR to obtain ultrasound and for follow-up within the next 7 days -Advised to continue vitamins daily All discharge instructions reviewed with patient and skilled nursing. Voiced understanding. KATHERINE LOPEZ MD Sep 11, 2022 17:47
[2022-09-11 18:16] LABS: BILIRUBIN,URINE NEGATIVE (NEGATIVE); CLARITY,URINE CLEAR; COLOR,URINE YELLOW; GLUCOSE, URINE (UA) TRACE (NEGATIVE); KETONES,URINE NEGATIVE (NEGATIVE); LEUKOCYTE ESTERASE ,URINE NEGATIVE (NEGATIVE); NITRITE,URINE NEGATIVE (NEGATIVE); PROTEIN,URINE NEGATIVE (NEGATIVE)
[2022-09-11 18:21] LABS: BACTERIA,URINE MODERATE /HPF; WBC,URINE 0-2 /HPF
[2022-09-11 19:10] VITALS: BP 117/69
== END 2022-09-11 19:05 ==
LOC: EDUNIT# 17:29 → ER FS 17:32
DX: O26.892 Other specified pregnancy related conditions, second trimester (principal); O09.522 Supervision of elderly multigravida, second trimester; N89.8 Other specified noninflammatory disorders of vagina; Z28.310 Unvaccinated for COVID-19; Z3A.00 Weeks of gestation of pregnancy not specified
CPT/HCPCS: 36415; 81000; 87070; 87088; 87205; 87210; 87491; 87591

== ENCOUNTER 2022-10-14 08:38 | Outpatient (CLI) | payer SELFPAY ==
[~2022-10-14] VITALS: Ht 175.3 cm; Wt 126.1 kg
[2022-10-14 09:05] VITALS: BP 114/55
[2022-10-14 09:26] LABS: BILIRUBIN,URINE NEGATIVE (NEGATIVE); CLARITY,URINE CLEAR; COLOR,URINE YELLOW; GLUCOSE, URINE (UA) 3+ (NEGATIVE); KETONES,URINE TRACE (NEGATIVE); LEUKOCYTE ESTERASE ,URINE NEGATIVE (NEGATIVE); NITRITE,URINE NEGATIVE (NEGATIVE); PROTEIN,URINE NEGATIVE (NEGATIVE)
[2022-10-14 09:36] LABS: BACTERIA,URINE FEW /HPF; WBC,URINE RARE /HPF
[2022-10-14 09:38] LABS: AMPHETAMINE SCREEN, URINE NEGATIVE (NEGATIVE); BARBITURATE SCREEN URINE NEGATIVE (NEGATIVE); BENZODIAZEPINES SCREEN URINE NEGATIVE (NEGATIVE); CANNABINOID SCREEN, URINE NEGATIVE (NEGATIVE); COCAINE SCREEN URINE NEGATIVE (NEGATIVE); METHADONE STAT NEGATIVE (NEGATIVE); OPIATE SCREEN URINE NEGATIVE (NEGATIVE); OXYCODONE STAT NEGATIVE (NEGATIVE); PROPOXYPHENE STAT NEGATIVE (NEGATIVE); TRICYCLIC ANTIDEPRESSANTS SCRE NEGATIVE (NEGATIVE)
--- NOTE | 2022-10-17 08:14 | Physician Query-Final Dx ---
ELISA,10/17/22 0814: Clinic Account Progress/Dx Physician Query: Please give diagnosis Please include # weeks gestation Date of Service October 14, 2022 at 08:38 LETHA RENEE DO 10/24/22 0911: Clinic Account Progress/Dx DIAGNOSIS: Diagnosis 30 wk GA pelvic pain ELISA,JunOctober 17, 2022 08:14 LETHA RENEE DO October 24, 2022 09:11
== END 2022-10-14 10:00 | disposition home or self-care (01) ==
LOC: WSo 08:38 → LDRP 08:38 → WSo 10:00
PROVIDERS: ATTEND Family Medicine
DX: O99.891 Other specified diseases and conditions complicating pregnancy (principal); R10.2 Pelvic and perineal pain; Z3A.30 30 weeks gestation of pregnancy
CPT/HCPCS: 80306; 81000; 87088; G0463; 99213

== ENCOUNTER 2022-12-03 14:45 | Emergency (ER) | payer MEDICAID, OTHER ==
[2022-12-03] MEDS ORDERED: ONDANSETRON 4 MG (ZOFRAN) ORAL DISSOLVE TAB PO STA (14:59)
[2022-12-03] MEDS ORDERED: ACETAMINOPHEN 500 MG TAB (TYLENOL) PO ONE (15:00)
--- NOTE | 2022-12-03 15:06 | ED GI ---
General Chief Complaint: OB > 20 WEEKS Stated Complaint: CONTRACTIONS; 38W Source of Information: Patient, EMS, Old Records Exam Limitations: No Limitations History of Present Illness Date Seen by Provider: Dec 03, 2022 Time Seen by Provider: 14:46 Initial Comments 37-year-old female that is at roughly 36 weeks estimated gestational age coming in via EMS due to concerns for being in labor. Reportedly, the patient was having her friend drive her to [place] where her perinatologist was. The patient unfortunately has multiple warrants for her arrest, was pulled over by police when they recognize her. She stated that she was driving to [employer] to be checked out for potentially being in labor, and they brought her here. She states she is having contractions maybe every 20 minutes or so, but she has only had C-sections, her cervix never dilates, and she is positive that the baby will not be coming out imminently. She states she has been seen by her perin atologist, was told recently they were [facility], but unsure if they are currently. Denies any fever, chest pain, vomiting, diarrhea, dysuria, vaginal bleeding, or any other concerns. Allergies and Home Medications Allergies Coded Allergies: No Known Drug Allergies (Unverified , 04/29/20) Patient Home Medication List Home Medication List Reviewed: Yes Vits W-Ca,Fe,Fa(<1MG) ( Vitamins) 1 Each Tablet, 1 EACH PO DAILY, (Reported) Entered as Reported by: LISBETH CUEVAS on 08/12/12 6993 Review of Systems Review of Systems Constitutional: No fever EENTM: No Symptoms Reported Respiratory: No Symptoms Reported Cardiovascular: No Symptoms Reported Gastrointestinal: See HPI Genitourinary: No Symptoms Reported Musculoskeletal: no symptoms reported Skin: no symptoms reported Psychiatric/Neurological: No Symptoms Reported Endocrine: No Symptoms Reported Past Iuegsnv-Nywbsr-Legloz Hx Patient Social History Substance use?: Yes Substance type: Methamphetamine Immunizations Up To Date First/Initial COVID19 Vaccinat: Unvaccinated Second COVID19 Vaccination Chilo: Unvaccinated Third COVID19 Vaccination Date: Unvaccinated Seasonal Allergies Seasonal Allergies: No Past Medical History Surgery/Hospitalization HX: /AB1, Gestational Diabetes Hx Surgeries: Yes Section, Gallbladder, Orthopedic Respiratory: No Cardiac: No Neurological: No Genitourinary: No Gastrointestinal: No Musculoskeletal: No Endocrine: No HEENT: No Cancer: No Psychosocial: Yes (OCD) ADD/ADHD, Anxiety, Bipolar, Depression Integumentary: No Blood Disorders: No Physical Exam Vital Signs Capillary Refill : Height/Weight/BMI Height: 5'9.50" Weight: 240lbs. oz. 108.030909ch; 41.03 BMI Method:Stated General Appearance: WD/WN, no apparent distress HEENT: PERRL/EOMI, normal ENT inspection, pharynx normal Neck: non-tender, full range of motion, supple, normal inspection Respiratory: chest non-tender, lungs clear, normal breath sounds, no respiratory distress, no accessory muscle use Cardiovascular: regular rate, rhythm, no edema, no murmur Gastrointestinal: normal bowel sounds, non tender, soft, other (Gravid) Extremities: normal range of motion, non-tender, normal inspection, no pedal edema, no calf tenderness, normal capillary refill Back: normal inspection, no CVA tenderness Neurologic/Psychiatric: no motor/sensory deficits, alert, normal mood/affect Skin: normal color, warm/dry Progress/Results/Core Measures Results/Orders My Orders Orders - CLIFFORD ROLDAN MD Acetaminophen Tablet (Tylenol Tablet) (12/03/22 15:00) Progress Progress Note : Progress Note 37-year-old female with above history coming in 37 weeks wanting to be checked to see if she was in labor. Patient is comfortable appearing on exam, soft, gravid abdomen that is nontender. Given Tylenol and Zofran. I discussed with the patient that we do not have the equipment here in our emergency department to check if she is in labor. My formal recommendation was to send he r via ambulance to the hospital in [place] to be seen by the OB department there. The patient states that she was literally on her way to [facility] via private vehicle with her friend driving. She states she does not believe she is imminently going to deliver. She states that she does not want to take an ambulance to [place], and she wants to continue with her original plan with her friend driving her to [place]. She states she never would have stopped and this ER had the police not pulled her over due to a warrant for her arrest. I discussed with the patient that if she were to leave via private vehicle it would be AGAINST MEDICAL ADVICE as we are unable to fully rule out labor. She is alert and oriented, does show that she has capacity to make decisions at this time, and she did sign out AGAINST MEDICAL ADVICE. Departure Impression Primary Impression: Qualified Codes: Z3A.36 - 36 weeks gestation of Additional Impression: Uterine contractions Disposition: AGAINST MEDICAL ADVICE Condition: Against Medical Advice Departure-Patient Inst. Decision time for Depature: 15:10 Referrals: MEAGAN VASQUEZ DO (PCP) Primary Care Physician Patient Instructions: How to tell when labor starts Add. Discharge Instructions: Please drive immediately to the hospital as you stated. At any time, you can call 911 if you feel like you are about to deliver. Of course she can always come back to our emergency department and we will transfer you via ambulance to the hospital if you would like. CLIFFORD ROLDAN MD Dec 03, 2022 15:06
[2022-12-03 15:11] VITALS: BP 124/91
== END 2022-12-03 15:11 | disposition left against medical advice (07) ==
LOC: EDUNIT# 14:45 → ER FS 14:47
DX: O47.1 False labor at or after 37 completed weeks of gestation (principal); Z28.310 Unvaccinated for COVID-19; Z3A.37 37 weeks gestation of pregnancy
CPT/HCPCS: 99283

== ENCOUNTER 2023-01-06 12:57 | Emergency (ER) | payer MEDICAID, OTHER ==
[~2023-01-06 12:57] MED LIST changes: +HYDR-34 PO; +IBUP-844 PO; +INSU100I10 SQ; +METF-397 PO
[2023-01-06] MEDS ORDERED: KETOROLAC 30 MG/ML VIAL IVP ONE (13:15)
[2023-01-06 13:38] LABS: BASOPHILS % (AUTO) 1 % (0-10); EOSINOPHILS # (AUTO) 0.5 10^3/uL (0.0-0.3); EOSINOPHILS % (AUTO) 5 % (0-10); HEMATOCRIT 34 % (35-52); HEMOGLOBIN 10.5 g/dL (11.5-16.0); LYMPHOCYTES # (AUTO) 2.2 10^3/uL (1.0-4.0); LYMPHOCYTES % (AUTO) 27 % (12-44); MEAN CORPUSCULAR HEMOGLOBIN 25 pg (25-34); MEAN CORPUSCULAR HGB CONC 31 g/dL (32-36); MEAN CORPUSCULAR VOLUME 79 fL (80-99); MONOCYTES # (AUTO) 0.4 10^3/uL (0.0-1.0); MONOCYTES % (AUTO) 5 % (0-12); NEUTROPHILS # (AUTO) 5.2 10^3/uL (1.8-7.8); NEUTROPHILS % (AUTO) 62 % (42-75); PLATELET COUNT 360 10^3/uL (130-400); WHITE BLOOD COUNT 8.3 10^3/uL (4.3-11.0)
[2023-01-06 14:01] LABS: CALCIUM 9.3 MG/DL (8.5-10.1); CREATININE SERUM 0.65 MG/DL (0.60-1.30); POTASSIUM 4.7 MMOL/L (3.6-5.0)
--- NOTE | 2023-01-06 14:16 | ED General ---
General Chief Complaint: Post OP Complications/Pain Stated Complaint: BLEEDING SUTURE Nursing Triage Note: Patient presents to the ED with c/o increased drainage from incision. Patient is currently an inmate at [facility]. States drainage increased last night and has been keep a pad over the incision to absorb the drainage. Reports the drainage has saturated 3 pads since yesterday evening. was done on December 07 and subsequent surgery was done on December 31 to drain abscess that had developed within the incision. Denies any fever or increased pain at incision site. Source of Information: Patient, Old Records Exam Limitations: No Limitations History of Present Illness Date Seen by Provider: Jan 06, 2023 Time Seen by Provider: 13:02 Initial Comments This 37-year-old woman presents to the emergency room accompanied by a [facility] chief commercial officer with complaints of significant drainage from the left side of her incision. Patient had a section on December 07 in [place]. She subsequently presented to [place] on December 12 for evaluation of a related hematoma. She presented to the emergency room in [place] on December 01 and was admitted for treatment of surgical wound infection. Dr. Hamm performed exploratory laparotomy, repair of fascial dehiscence, and evacuation/washout of abscesses. She was treated with IV antibiotics in the hospital. She was discharged on January 04. She is not presently on antibiotics. She is afebrile. She has had some mild increase in pain on the left side of her incision. Allergies and Home Medications Allergies Coded Allergies: prednisone (Verified Allergy, Unknown, 12/30/22) Pt states medication makes her homicidal/suicidal Patient Home Medication List Home Medication List Reviewed: Yes Hydrocodone Bit/Acetaminophen (HYDROcodone/APAP 7.5/325 TAB) 1 Ea Tablet, 1 EA PO Q6H PRN for PAIN-MODERATE (5-7) Prescribed by: Jennifer Hamm on 01/02/232246 Ibuprofen (Ibu) 600 Mg Tablet, 600 MG PO Q6H Prescribed by: Jennifer Hamm on 01/02/232245 Insulin Glargine,Hum.rec.anlog (Lantus Solostar) 100 Unit/Ml (3 Ml) Insuln.pen, 16 UNIT SQ HS Prescribed by: Jennifer Hamm on 01/02/232245 Metformin HCl (Metformin HCl) 500 Mg Tablet, 1,000 MG PO BID@07,17 Prescribed by: Jennifer Hamm on 01/02/23 2246 Vits W-Ca,Fe,Fa(<1MG) ( Vitamins) 1 Each Tablet, 1 EACH PO DAILY, (Reported) Entered as Reported by: LISBETH CUEVAS on 08/12/12 1335 Review of Systems Review of Systems Constitutional: no symptoms reported EENTM: no symptoms reported Respiratory: no symptoms reported Cardiovascular: no symptoms reported Gastrointestinal: see HPI Genitourinary: see HPI Musculoskeletal: no symptoms reported Skin: see HPI Psychiatric/Neurological: No Symptoms Reported Hematologic/Lymphatic: No Symptoms Reported Past Rarttcj-Rwcakw-Ndrxtg Hx Patient Social History Tobacco Use?: No Use of E-Cig and/or Vaping dev: No Substance use?: Yes Substance type: Methamphetamine, Marijuana Alcohol Use?: No Pt feels they are or have been: No Immunizations Up To Date First/Initial COVID19 Vaccinat: Unvaccinated Second COVID19 Vaccination Chilo: Unvaccinated Third COVID19 Vaccination Date: Unvaccinated Seasonal Allergies Seasonal Allergies: No Past Medical History Surgery/Hospitalization HX: /AB2, Gestational Diabetes Hx; Type II DM Surgeries: Yes Section, Gallbladder, Orthopedic Respiratory: No Currently Using CPAP: No Currently Using BIPAP: No Cardiac: No Neurological: No Reproductive Disorders: No Female Reproductive Disorders: Denies Sexually Transmitted Disease: No HIV/AIDS: No Genitourinary: No Gastrointestinal: No Musculoskeletal: No Endocrine: Yes Diabetes, Non-Insulin dep HEENT: No Cancer: No Psychosocial: Yes (OCD) ADD/ADHD, Anxiety, Bipolar, Depression Integumentary: No Blood Disorders: No Physical Exam Vital Signs Vital Signs - First Documented 01/06/23 13:00 Temp 36.9 Pulse 67 Resp 16 B/P (MAP) 135/74 (94) Pulse Ox 98 O2 Delivery Room Air Capillary Refill : Less Than 3 Seconds Height, Weight, BMI Height: 5'9.50" Weight: 240lbs. oz. 108.317199zm; 39.40 BMI Method:Stated General Appearance: No Apparent Distress, WD/WN, Obese HEENT: Normal ENT Inspection Respiratory: Lungs Clear, No Respiratory Distress Cardiovascular: Regular Rate, Rhythm Gastrointestinal: Soft, Tenderness (Tenderness of the lower abdomen as expected for postoperative state. 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 There was no erythema or inflammatory changes noted about the incision. There was copious serosanguineous drainage on the left side of the incision. No purulent drainage was identified. Debris around the incision was removed and was identified as moistened nystatin powder.) Progress/Results/Core Measures Suspected Sepsis SIRS Temperature: Pulse: 67 Respiratory Rate: 16 Laboratory Tests 01/06/23 13:15: White Blood Count 8.3 Blood Pressure 135 /74 Mean: 94 Laboratory Tests 01/06/23 13:15: Creatinine 0.65, Platelet Count 360 Results/Orders Lab Results Laboratory Tests Test 01/06/23 13:15 Range/Units White Blood Count 8.3 4.3-11.0 10^3/uL Red Blood Count 4.24 3.80-5.11 10^6/uL Hemoglobin 10.5 L 11.5-16.0 g/dL Hematocrit 34 L 35-52 % Mean Corpuscular Volume 79 L 80-99 fL Mean Corpuscular Hemoglobin 25 25-34 pg Mean Corpuscular Hemoglobin Concent 31 L 32-36 g/dL Red Cell Distribution Width 16.9 H 10.0-14.5 % Platelet Count 360 130-400 10^3/uL Mean Platelet Volume 10.0 9.0-12.2 fL Immature Granulocyte % (Auto) 1 % Neutrophils (%) (Auto) 62 42-75 % Lymphocytes (%) (Auto) 27 12-44 % Monocytes (%) (Auto) 5 0-12 % Eosinophils (%) (Auto) 5 0-10 % Basophils (%) (Auto) 1 0-10 % Neutrophils # (Auto) 5.2 1.8-7.8 10^3/uL Lymphocytes # (Auto) 2.2 1.0-4.0 10^3/uL Monocytes # (Auto) 0.4 0.0-1.0 10^3/uL Eosinophils # (Auto) 0.5 H 0.0-0.3 10^3/uL Basophils # (Auto) 0.0 0.0-0.1 10^3/uL Immature Granulocyte # (Auto) 0.0 0.0-0.1 10^3/uL Sodium Level 141 135-145 MMOL/L Potassium Level 4.7 3.6-5.0 MMOL/L Chloride Level 104 98-107 MMOL/L Carbon Dioxide Level 24 21-32 MMOL/L Anion Gap 13 5-14 MMOL/L Blood Urea Nitrogen 8 7-18 MG/DL Creatinine 0.65 0.60-1.30 MG/DL Estimat Glomerular Filtration Rate 116 BUN/Creatinine Ratio 12 Glucose Level 105 70-105 MG/DL Calcium Level 9.3 8.5-10.1 MG/DL C-Reactive Protein 2.64 H <0.50 MG/DL My Orders Orders - PIA SCHREIBER MD Basic Metabolic Panel (01/06/23 13:14) Cbc With Automated Diff (01/06/23 13:14) Ed Iv/Invasive Line Start (01/06/23 13:14) Ketorolac Injection (Toradol Injection) (01/06/23 13:15) Crp Fs (01/06/23 13:14) Wound Culture (01/06/23 14:43) Vital Signs/I&O 01/06/23 13:00 Temp 36.9 Pulse 67 Resp 16 B/P (MAP) 135/74 (94) Pulse Ox 98 O2 Delivery Room Air Capillary Refill : Less Than 3 Seconds Blood Pressure Mean: 94 Progress Note #1: Time: 13:55 Progress Note Patient was interviewed and examined during triage process at 1302. Chart was reviewed. Labs and Toradol had been ordered by 1314. Patient was found to have a significant amount of active serosanguineous drainage from the left side of her incision with localized tenderness. There was no obvious in flammatory response. Drainage did not appear grossly purulent. She denied having any fever. Labs were obtained. Once labs are resulted, I will contact Dr. Hamm to discuss the plan. Progress Note #2: Time: 14:45 Progress Note Labs were reviewed, and interpreted by me, and compared with prior. CBC demonstrated no leukocytosis with WBC of 8. Hemoglobin of 10.5 demonstrated mild stable anemia. BMP was unremarkable. CRP demonstrated minimal elevation at 2.6. Blood sugar was well controlled at 116 labs and vital signs would suggest against infection of this surgical wound. I suspect this and drainage represents a draining seroma or simply a collection of subcutaneous serosanguineous fluid that is now draining. I discussed the case with Dr. Hamm. She advised against antibiotics at this time. She recommended using absorbent dressings liberally to keep the wound as clean and dry as possible. Patient has been instructed to have lizzie removed by group home nurse or [facility] on Monday. Given the copious drainage, it is now recommended that patient be seen in the women's clinic by gynecologic staff before giving direction on staple removal. The corrections staff will make an appointment to be seen next week. Return precautions have been provided with the discharge instructions. A culture was obtained of the serosanguineous drainage. Departure Impression Primary Impression: Drainage from surgical wound Disposition: HOME, SELF-CARE Condition: Improved Departure-Patient Inst. Decision time for Depature: 14:40 Referrals: MEAGAN VASQUEZ DO (PCP/Family) Primary Care Physician Patient Instructions: Wound Care ED Add. Discharge Instructions: The drainage at your surgical wound does not appear to be involving any infection at this time. The drainage appears to be serosanguineous rather than infectious. However, a culture has been collected and should be available in 2 or 3 days for review. Continue postoperative care as previously instructed, but also keep the incision as clean and dry as possible by using copious amounts of absorbent dressings. If you start developing notable redness, escalating pain, heat at the site, puslike drainage, or fevers, please return to care promptly. Please contact the [facility] in [place] at [phone] to schedule a follow-up appointment next week with a gynecologic provider. Do NOT have lizzie removed prior to that appointment as previously instructed. Call with questions or concerns. Copy Copies To 1: JENNIFER HAMM DO Copies To 2: [facility]/PIA BOWER MD Jan 06, 2023 14:16
[2023-01-06 14:50] VITALS: BP 137/71
== END 2023-01-06 14:50 | disposition home or self-care (01) ==
LOC: EDUNIT# 12:57 → ER FS 12:58
DX: T81.9XXA Unspecified complication of procedure, initial encounter (principal); Z28.310 Unvaccinated for COVID-19
CPT/HCPCS: 36415; 80048; 85025; 86141; 87070; 87205; 99282